=== PATIENT | female | born 1985 | race Two or more races ===

== ENCOUNTER 2017-02-08 12:07 | Inpatient (IN) | payer MEDICAID ==
[2017-02-08] MEDS ORDERED: Ondansetron 4 MG/2 ML SDV IVPUSH PRN (12:14)
[2017-02-08] MEDS ORDERED: Sodium Chloride 0.9% 10 ML Syringe FLUSH PRN (12:14)
[2017-02-08] MEDS ORDERED: Nalbuphine 20 MG/1 ML Amp IVPUSH PRN (12:14)
[2017-02-08] MEDS ORDERED: Oxytocin/Lactated Ringers 10 UNIT/1,000 ML BAG IV SCH (12:15)
--- NOTE | 2017-02-08 12:17 | PCM.LDHP ---
L&D History of Present Illness - General Date of Service: 02/08/17 Admit Problem/Dx: Patient Status Order with Admit Dx/Problem 02/08/17 12:15 Patient Status [ADT] Routine Admission Diagnosis/Problem Admission Diagnosis/Problem Normal in third trimester Source of Information: Patient History Limitations: Reports: No Limitations - History of Present Illness Introduction:: Patient is a 31 y/o woman at 40 4/7 wks who presents for IOL for dates/ GODMA1. Doing well. Getting good FM. No signs of labor other than some mild cramping. No other issues. - Related Data Allergies/Adverse Reactions: Allergies Allergy/AdvReac Type Severity Reaction Status Date / Time No Known Allergies Allergy Verified 02/08/17 14:10 Past Medical History - Past Health History Medical/Surgical History: Denies Medical/Surgical History [employer] History: Reports: : 1 Para: 0 LMP (Approximate): Social & Family History - Tobacco Use Smoking Status *Q: Never Smoker - Alcohol Use Alcohol Use History: No - Recreational Drug Use Recreational Drug Use: No H&P Review of Systems - Review of Systems: Review Of Systems: See Below General: Reports: No Symptoms Pulmonary: Reports: No Symptoms Cardiovascular: Reports: No Symptoms Gastrointestinal: Reports: No Symptoms Genitourinary: Reports: No Symptoms L&D Exam - Exam Exam: See Below - OB Specific Contraction Intensity: Irritability Movement: Active Heart Tones: Present Heart Tones per Min: 150 Heart Rate (FHR) Variability: Moderate (6-25 bmp) Presentation: Vertex - Martinez Score Martinez Score Cervix Position: Posterior Martinez Score Consistency: Soft Martinez Score Effacement: 0-30% Martinez Score Dilation: 1-2 cm Martinez Score Infant's Station: -2 Martinez Score Total: 4 - Exam General: Alert, Oriented, Cooperative Lungs: Clear to Auscultation, Normal Respiratory Effort Cardiovascular: Regular Rate, Regular Rhythm GI/Abdominal Exam: Soft, Non-Tender Genitourinary: Normal external exam Extremities: Normal Inspection Skin: Warm, Dry, Intact - Patient Data Result Diagrams: 02/08/17 12:50 - Problem List (1) 40 weeks gestation of SNOMED Code(s): 71175850 ICD Code: Z3A.40 - 40 WEEKS GESTATION OF Status: Acute Current Visit: Yes (2) Language barrier SNOMED Code(s): 481846490 ICD Code: Z78.9 - OTHER SPECIFIED HEALTH STATUS Status: Acute Current Visit: Yes (3) Gestational diabetes mellitus SNOMED Code(s): 87983236 ICD Code: O24.419 - GESTATIONAL DIABETES MELLITUS IN , UNSP CONTROL Status: Acute Current Visit: Yes Qualifiers: Gestational diabetes mellitus control: diet-controlled Trimester: third trimester Qualified Code(s): O24.410 - Gestational diabetes mellitus in , diet controlled Problem List Initiated/Reviewed/Updated: Yes Orders Last 24hrs: Active Orders 24 hr Category Date Time Status Patient Status [ADT] Routine ADT 02/08/17 12:15 Ordered Communication Order [RC] ASDIRECTED Care 02/08/17 12:15 Ordered Communication Order [RC] ASDIRECTED Care 02/08/17 12:15 Ordered Communication Order [RC] ASDIRECTED Care 02/08/17 12:15 Ordered Monitoring [RC] INTERMITTENT Care 02/08/17 12:15 Ordered Notify Provider [RC] ASDIRECTED Care 02/08/17 12:15 Ordered Notify Provider [RC] PRN Care 02/08/17 12:15 Ordered Peripheral IV Care [RC] . DIRECTED Care 02/08/17 12:16 Ordered Up ad Tashia [RC] ASDIRECTED Care 02/08/17 12:15 Ordered Vaginal Exam [RC] ASDIRECTED Care 02/08/17 12:15 Ordered Vital Signs [RC] ASDIRECTED Care 02/08/17 12:15 Ordered Regular Diet [DIET] Diet 02/08/17 Lunch Ordered CBC W/O DIFF,HEMOGRAM [HEME] Routine Lab 02/08/17 12:14 Ordered TYPE AND SCREEN [BBK] Routine Lab 02/08/17 12:14 Ordered Lactated Ringers [Ringers, Lactated] 1,000 ml Med 02/08/17 12:15 Ordered IV ASDIRECTED Misoprostol [Cytotec] Med 02/08/17 12:14 Ordered 25 mcg VAG Q4H PRN Nalbuphine [Nubain] Med 02/08/17 12:14 Ordered 10 mg IVPUSH Q2H PRN Ondansetron [Zofran] Med 02/08/17 12:14 Ordered 4 mg IVPUSH Q4H PRN Oxytocin/Lactated Ringers [Pitocin in LR 10 Units/1,000 Med 02/08/17 12:15 Ordered ML] 10 unit in 1,000 ml IV .CONTINUOUS Sodium Chloride 0.9% [Saline Flush] Med 02/08/17 12:14 Ordered 10 ml FLUSH ASDIRECTED PRN Electronic Heart Tones Internal [WOMSER] Per Unit Oth 02/08/17 12:15 Ordered Routine Peripheral IV Insertion Adult [OM.PC] Routine Oth 02/08/17 12:15 Ordered Resuscitation Status Routine Resus Stat 02/08/17 12:14 Ordered Assessment/Plan Comment:: 31 y/o woman at 40 4/7 wks who presents for IOL for dates/GODMA1 * CBC and T&S * GBS negative, no need for antibiotics * Cytotec for now, try to place jolly bulb later. Eventual pitocin/AROM as needed * Pain management per patient preference * Anticipate
[2017-02-08] MEDS ORDERED: Misoprostol 25 MCG (1/4 of 100 MCG) Tab ONE (12:29)
[2017-02-08] MEDS: Misoprostol 25 MCG (1/4 of 100 MCG) Tab VAG PRN ×2 (12:33→16:45)
[2017-02-08] MEDS ORDERED: fentaNYL 100 MCG/2 ML SDV EPIDUR PRN (16:20)
[2017-02-08] MEDS ORDERED: diphenhydrAMINE 50 MG/ML SDV IVPUSH PRN (16:20)
[2017-02-08] MEDS ORDERED: ePHEDrine 50 MG/ML SDV IVPUSH PRN (16:20)
--- NOTE | 2017-02-08 16:41 | PCM.PREANE ---
Preanesthetic Assessment - Anesthesia/Transfusion/Family Hx Anesthesia History: No Prior Anesthesia Family History of Anesthesia Reaction: No Transfusion History: No Prior Transfusion(s) Intubation History: Unknown - Review of Systems General: No Symptoms Pulmonary: No Symptoms Cardiovascular: No Symptoms Gastrointestinal: No Symptoms Neurological: No Symptoms Other: Reports: None - Physical Assessment O2 Sat by Pulse Oximetry: 98 Respiratory Rate: 18 Vital Signs: Last Vital Signs Temp 36.7 C 02/08/17 12:30 Pulse 81 02/08/17 12:30 Resp 18 02/08/17 12:30 BP 122/77 02/08/17 12:30 Pulse Ox 98 02/08/17 12:30 Weight: 83.007 kg ASA Class: 2 Mental Status: Alert & Oriented x3 Airway Class: Mallampati = 1 Dentition: Reports: Normal Dentition Thyro-Mental Finger Breadths: 3 Mouth Opening Finger Breadths: 3 ROM/Head Extension: Full Lungs: Clear to Auscultation, Normal Respiratory Effort Cardiovascular: Regular Rate, Regular Rhythm - Lab Values: Laboratory Last Values WBC 7.88 K/mm3 (3.98-10.04) 02/08/17 12:50 RBC 4.10 M/mm3 (3.98-5.22) 02/08/17 12:50 Hgb 12.6 gm/L (11.2-15.7) 02/08/17 12:50 Hct 37.2 % (34.1-44.9) 02/08/17 12:50 MCV 90.7 fl (79.4-94.8) 02/08/17 12:50 MCH 30.7 pg (25.6-32.2) 02/08/17 12:50 MCHC 33.9 g/dl (32.2-35.5) 02/08/17 12:50 RDW Std Deviation 45.1 fL (36.4-46.3) 02/08/17 12:50 Plt Count 229 K/mm3 (182-369) 02/08/17 12:50 MPV 11.0 fl (9.4-12.3) 02/08/17 12:50 Blood Type O POSITIVE 02/08/17 12:50 Gel Antibody Screen Negative 02/08/17 12:50 - Allergies Allergies/Adverse Reactions: Allergies Allergy/AdvReac Type Severity Reaction Status Date / Time No Known Allergies Allergy Verified 02/08/17 14:10 - Acknowledgements Anesthesia Type Planned: Epidural Pt an Appropriate Candidate for the Planned Anesthesia: Yes Alternatives and Risks of Anesthesia Discussed w Pt/Guardian: Yes Pt/Guardian Understands and Agrees with Anesthesia Plan: Yes PreAnesthesia Questionnaire ADMINISTRATIVE REPRESENTATIVE History: Reports: Endocrine/Metabolic History: Reports: Diabetes, Gestational - SUBSTANCE USE Smoking Status *Q: Never Smoker Recreational Drug Use History: No - CURRENT (IN HOUSE) MEDS Current Meds: Current Medications Diphenhydramine HCl (Benadryl) 25 mg IVPUSH Q6H PRN PRN Reason: Pruritis Ephedrine Sulfate (Ephedrine Sulfate) 5 mg IVPUSH ASDIRECTED PRN PRN Reason: Hypotension Fentanyl (Sublimaze) 100 mcg EPIDUR ONETIME PRN PRN Reason: Pain Fentanyl/Bupivacaine HCl (Fentanyl/Bupivacaine/Ns 2 Mcg-0.125% 100 Ml) 100 ml EPIDUR ASDIRECTED OLIVER Lactated Ringer's (Ringers, Lactated) 1,000 mls @ 40 mls/hr IV ASDIRECTED [place] Oxytocin/Lactated Ringer's (Pitocin In Lr 10 Units/1,000 Ml) 10 unit in 1,000 mls @ 500 mls/hr IV .CONTINUOUS [place] Misoprostol (Cytotec) 25 mcg VAG Q4H PRN PRN Reason: cervical ripening Last Admin: 02/08/17 12:33 Dose: 25 mcg Nalbuphine HCl (Nubain) 10 mg IVPUSH Q2H PRN PRN Reason: Pain (moderate 4-6) Ondansetron HCl (Zofran) 4 mg IVPUSH Q4H PRN PRN Reason: Nausea/Vomiting Sodium Chloride (Saline Flush) 10 ml FLUSH ASDIRECTED PRN PRN Reason: Keep Vein Open Discontinued Medications Misoprostol (Cytotec) Confirm Administered Dose 25 mcg .ROUTE .STK-MED ONE Stop: 02/08/17 12:30 Last Admin: 02/08/17 14:59 Dose: Not Given
[2017-02-08] MEDS: Lactated Ringers 1,000 ML IV SCH ×2 (18:11→20:51)
--- NOTE | 2017-02-08 20:21 | PCM.PNLD ---
Labor Progress Note - VS & Meds Vital Signs: Last Vital Signs Temp 36.7 C 02/08/17 12:30 Pulse 81 02/08/17 12:30 Resp 18 02/08/17 16:41 BP 122/77 02/08/17 12:30 Pulse Ox 98 02/08/17 16:41 Active Medications: Current Medications Diphenhydramine HCl (Benadryl) 25 mg IVPUSH Q6H PRN PRN Reason: Pruritis Ephedrine Sulfate (Ephedrine Sulfate) 5 mg IVPUSH ASDIRECTED PRN PRN Reason: Hypotension Fentanyl (Sublimaze) 100 mcg EPIDUR ONETIME PRN PRN Reason: Pain Fentanyl/Bupivacaine HCl (Fentanyl/Bupivacaine/Ns 2 Mcg-0.125% 100 Ml) 100 ml EPIDUR ASDIRECTED [place] Lactated Ringer's (Ringers, Lactated) 1,000 mls @ 40 mls/hr IV ASDIRECTED OLIVER Last Admin: 02/08/17 18:11 Dose: 250 mls/hr Oxytocin/Lactated Ringer's (Pitocin In Lr 10 Units/1,000 Ml) 10 unit in 1,000 mls @ 500 mls/hr IV .CONTINUOUS [facility] Misoprostol (Cytotec) 25 mcg VAG Q4H PRN PRN Reason: cervical ripening Last Admin: 02/08/17 16:45 Dose: 25 mcg Nalbuphine HCl (Nubain) 10 mg IVPUSH Q2H PRN PRN Reason: Pain (moderate 4-6) Ondansetron HCl (Zofran) 4 mg IVPUSH Q4H PRN PRN Reason: Nausea/Vomiting Sodium Chloride (Saline Flush) 10 ml FLUSH ASDIRECTED PRN PRN Reason: Keep Vein Open Discontinued Medications Misoprostol (Cytotec) Confirm Administered Dose 25 mcg .ROUTE .STK-MED ONE Stop: 02/08/17 12:30 Last Admin: 02/08/17 14:59 Dose: Not Given - Uterine Contractions Uterine Monitoring Mode: External [place] Contraction Intensity: Mild to Moderate Uterine Resting Tone: Soft - Monitoring Monitor Mode: External Ultrasound Heart Rate (FHR) Baseline: 150 Heart Rate (FHR) Variability: Moderate (6-25 bmp) Accelerations: Present, 15x15 Decelerations: None Strip Review: Category I - Vaginal Exam Dilation (cm): 1 Effacement (Percent): 25 Station: -2 Cervical Position: Posterior - Labor Progress (Free Text) Labor Progress: Doing well. S/p 1st cytotec dose. Next due shortly. Eid bulb placed to continue induction process.
--- NOTE | 2017-02-08 20:24 | PCM.PNLD ---
Labor Progress Note - VS & Meds Vital Signs: Last Vital Signs Temp 36.7 C 02/08/17 12:30 Pulse 81 02/08/17 12:30 Resp 18 02/08/17 16:41 BP 122/77 02/08/17 12:30 Pulse Ox 98 02/08/17 16:41 Active Medications: Current Medications Diphenhydramine HCl (Benadryl) 25 mg IVPUSH Q6H PRN PRN Reason: Pruritis Ephedrine Sulfate (Ephedrine Sulfate) 5 mg IVPUSH ASDIRECTED PRN PRN Reason: Hypotension Fentanyl (Sublimaze) 100 mcg EPIDUR ONETIME PRN PRN Reason: Pain Fentanyl/Bupivacaine HCl (Fentanyl/Bupivacaine/Ns 2 Mcg-0.125% 100 Ml) 100 ml EPIDUR ASDIRECTED OLIVER Lactated Ringer's (Ringers, Lactated) 1,000 mls @ 40 mls/hr IV ASDIRECTED OLIVER Last Admin: 02/08/17 18:11 Dose: 250 mls/hr Oxytocin/Lactated Ringer's (Pitocin In Lr 10 Units/1,000 Ml) 10 unit in 1,000 mls @ 500 mls/hr IV .CONTINUOUS [facility] Misoprostol (Cytotec) 25 mcg VAG Q4H PRN PRN Reason: cervical ripening Last Admin: 02/08/17 16:45 Dose: 25 mcg Nalbuphine HCl (Nubain) 10 mg IVPUSH Q2H PRN PRN Reason: Pain (moderate 4-6) Ondansetron HCl (Zofran) 4 mg IVPUSH Q4H PRN PRN Reason: Nausea/Vomiting Sodium Chloride (Saline Flush) 10 ml FLUSH ASDIRECTED PRN PRN Reason: Keep Vein Open Discontinued Medications Misoprostol (Cytotec) Confirm Administered Dose 25 mcg .ROUTE .STK-MED ONE Stop: 02/08/17 12:30 Last Admin: 02/08/17 14:59 Dose: Not Given - Uterine Contractions Uterine Monitoring Mode: External [place] Contraction Intensity: Moderate Uterine Resting Tone: Soft - Monitoring Monitor Mode: External Ultrasound Heart Rate (FHR) Baseline: 150 Heart Rate (FHR) Variability: Moderate (6-25 bmp) Accelerations: Present, 15x15 Decelerations: None Strip Review: Category I - Vaginal Exam Dilation (cm): 2 Effacement (Percent): 60 Station: -2 Cervical Position: Midposition - Labor Progress (Free Text) Labor Progress: Patient doing well. Rates contractions as a 5/10. Eid bulb felt to be pushing through the cervix. Deflated 10 cc and removed. Cervix is 2 and 60%. Patient has been silverio about q2 or so. Discussed with nursing and will plan to switch to pitocin in 30 minutes (4 hours after last cytotec placed). Patient agrees.
[2017-02-09] MEDS: Lactated Ringers 1,000 ML IV SCH ×4 (01:18→07:11)
[2017-02-09] MEDS: Bupivacaine/fentaNYL/NS 100 ML Bag EPIDUR SCH ×2 (02:21→10:30)
--- NOTE | 2017-02-09 03:39 | PCM.PNLD ---
Labor Progress Note - VS & Meds Vital Signs: Last Vital Signs Temp 36.7 C 02/08/17 12:30 Pulse 81 02/08/17 12:30 Resp 18 02/08/17 16:41 BP 122/77 02/08/17 12:30 Pulse Ox 98 02/08/17 16:41 Active Medications: Current Medications Diphenhydramine HCl (Benadryl) 25 mg IVPUSH Q6H PRN PRN Reason: Pruritis Ephedrine Sulfate (Ephedrine Sulfate) 5 mg IVPUSH ASDIRECTED PRN PRN Reason: Hypotension Fentanyl (Sublimaze) 100 mcg EPIDUR ONETIME PRN PRN Reason: Pain Last Admin: 02/09/17 02:21 Dose: 100 mcg Fentanyl/Bupivacaine HCl (Fentanyl/Bupivacaine/Ns 2 Mcg-0.125% 100 Ml) 100 ml EPIDUR ASDIRECTED OLIVER Last Admin: 02/09/17 02:21 Dose: 100 ml Lactated Ringer's (Ringers, Lactated) 1,000 mls @ 40 mls/hr IV ASDIRECTED OLIVER Last Admin: 02/09/17 02:41 Dose: 999 mls/hr Oxytocin/Lactated Ringer's (Pitocin In Lr 10 Units/1,000 Ml) 10 unit in 1,000 mls @ 500 mls/hr IV .CONTINUOUS [place] Oxytocin 10 unit/ Lactated (Ringer's) 1,001 mls @ 12.01 mls/hr IV TITRATE OLIVER; 2 MUNITS/MIN PRN Reason: Protocol Last Titration: 02/09/17 01:47 Dose: 0 munits/min, 0 mls/hr Misoprostol (Cytotec) 25 mcg VAG Q4H PRN PRN Reason: cervical ripening Last Admin: 02/08/17 16:45 Dose: 25 mcg Nalbuphine HCl (Nubain) 10 mg IVPUSH Q2H PRN PRN Reason: Pain (moderate 4-6) Ondansetron HCl (Zofran) 4 mg IVPUSH Q4H PRN PRN Reason: Nausea/Vomiting Last Admin: 02/09/17 01:15 Dose: 4 mg Sodium Chloride (Saline Flush) 10 ml FLUSH ASDIRECTED PRN PRN Reason: Keep Vein Open Discontinued Medications Misoprostol (Cytotec) Confirm Administered Dose 25 mcg .ROUTE .STK-MED ONE Stop: 02/08/17 12:30 Last Admin: 02/08/17 14:59 Dose: Not Given - Uterine Contractions Uterine Monitoring Mode: External [place] Contraction Intensity: Moderate to Strong Uterine Resting Tone: Soft - Monitoring Monitor Mode: External Ultrasound Heart Rate (FHR) Baseline: 140 Heart Rate (FHR) Variability: Moderate (6-25 bmp) Accelerations: Present, 15x15 Decelerations: Early, Late (right after epidural), Variable Strip Review: Category II - Vaginal Exam Dilation (cm): 2 - BBOW Effacement (Percent): 80 Station: -2 Cervical Position: Midposition - Labor Progress (Free Text) Labor Progress: Patient doing well currently. Pitocin got to a high of about 8 slightly before midnight. Patient then very uncomfortable. Decreased/off by nursing around 0145 this AM. Completed her epidural about 1 hour ago. Had a few late decelerations right after epidural resolved with nursing interventions. AROM just performed with release of meconium stained fluid.
--- NOTE | 2017-02-09 04:28 | PCM.SN ---
- Free Text/Narrative Note: After AROM patient did have a period of larger variable decelerations and also deeper what appear to be early decelerations. Position changes done, but after no resolution decision made to place IUPC and start amnioinfusion. Patient and family aware of reasons/indications of amnioinfusion and they agree. No other questions at this time. Eva Vincent MD
--- NOTE | 2017-02-09 07:16 | PCM.PNLD ---
Labor Progress Note - VS & Meds Vital Signs: Last Vital Signs Temp 36.7 C 02/08/17 12:30 Pulse 81 02/08/17 12:30 Resp 18 02/08/17 16:41 BP 122/77 02/08/17 12:30 Pulse Ox 98 02/08/17 16:41 Active Medications: Current Medications Diphenhydramine HCl (Benadryl) 25 mg IVPUSH Q6H PRN PRN Reason: Pruritis Ephedrine Sulfate (Ephedrine Sulfate) 5 mg IVPUSH ASDIRECTED PRN PRN Reason: Hypotension Fentanyl (Sublimaze) 100 mcg EPIDUR ONETIME PRN PRN Reason: Pain Last Admin: 02/09/17 02:21 Dose: 100 mcg Fentanyl/Bupivacaine HCl (Fentanyl/Bupivacaine/Ns 2 Mcg-0.125% 100 Ml) 100 ml EPIDUR ASDIRECTED OLIVER Last Admin: 02/09/17 02:21 Dose: 100 ml Lactated Ringer's (Ringers, Lactated) 1,000 mls @ 40 mls/hr IV ASDIRECTED OLIVER Last Admin: 02/09/17 07:11 Dose: 125 mls/hr Oxytocin/Lactated Ringer's (Pitocin In Lr 10 Units/1,000 Ml) 10 unit in 1,000 mls @ 500 mls/hr IV .CONTINUOUS [place] Oxytocin 10 unit/ Lactated (Ringer's) 1,001 mls @ 12.01 mls/hr IV TITRATE OLIVER; 2 MUNITS/MIN PRN Reason: Protocol Last Titration: 02/09/17 01:47 Dose: 0 munits/min, 0 mls/hr Misoprostol (Cytotec) 25 mcg VAG Q4H PRN PRN Reason: cervical ripening Last Admin: 02/08/17 16:45 Dose: 25 mcg Nalbuphine HCl (Nubain) 10 mg IVPUSH Q2H PRN PRN Reason: Pain (moderate 4-6) Ondansetron HCl (Zofran) 4 mg IVPUSH Q4H PRN PRN Reason: Nausea/Vomiting Last Admin: 02/09/17 01:15 Dose: 4 mg Sodium Chloride (Saline Flush) 10 ml FLUSH ASDIRECTED PRN PRN Reason: Keep Vein Open Discontinued Medications Misoprostol (Cytotec) Confirm Administered Dose 25 mcg .ROUTE .STK-MED ONE Stop: 02/08/17 12:30 Last Admin: 02/08/17 14:59 Dose: Not Given - Uterine Contractions Uterine Monitoring Mode: External [place], IUPC Contraction Intensity: Moderate to Strong Uterine Resting Tone: Soft - Monitoring Monitor Mode: External Ultrasound Heart Rate (FHR) Baseline: 135 Heart Rate (FHR) Variability: Moderate (6-25 bmp) Accelerations: Present, 15x15 Decelerations: Early Strip Review: Category I - Vaginal Exam Dilation (cm): 5 Effacement (Percent): 90 Station: 1 Cervical Position: Anterior - Labor Progress (Free Text) Labor Progress: Patient doing well overall. Feeling a lot more pressure. SVE with significant change in station. Now 5 / 90% / 0-+1. status has been appropriate with amnioinfusion. Baby with moderate variability, some early decelerations, but no further repetitive or deep variables. Continue current management.
--- NOTE | 2017-02-09 08:43 | PCM.PNLD ---
Labor Progress Note - VS & Meds Vital Signs: Last Vital Signs Temp 36.7 C 02/08/17 12:30 Pulse 81 02/08/17 12:30 Resp 18 02/08/17 16:41 BP 122/77 02/08/17 12:30 Pulse Ox 98 02/08/17 16:41 Active Medications: Current Medications Diphenhydramine HCl (Benadryl) 25 mg IVPUSH Q6H PRN PRN Reason: Pruritis Ephedrine Sulfate (Ephedrine Sulfate) 5 mg IVPUSH ASDIRECTED PRN PRN Reason: Hypotension Fentanyl (Sublimaze) 100 mcg EPIDUR ONETIME PRN PRN Reason: Pain Last Admin: 02/09/17 02:21 Dose: 100 mcg Fentanyl/Bupivacaine HCl (Fentanyl/Bupivacaine/Ns 2 Mcg-0.125% 100 Ml) 100 ml EPIDUR ASDIRECTED [place] Last Admin: 02/09/17 02:21 Dose: 100 ml Lactated Ringer's (Ringers, Lactated) 1,000 mls @ 40 mls/hr IV ASDIRECTED OLIVER Last Admin: 02/09/17 07:11 Dose: 125 mls/hr Oxytocin/Lactated Ringer's (Pitocin In Lr 10 Units/1,000 Ml) 10 unit in 1,000 mls @ 500 mls/hr IV .CONTINUOUS [place] Oxytocin 10 unit/ Lactated (Ringer's) 1,001 mls @ 12.01 mls/hr IV TITRATE [place]IVER; 2 MUNITS/MIN PRN Reason: Protocol Last Titration: 02/09/17 01:47 Dose: 0 munits/min, 0 mls/hr Misoprostol (Cytotec) 25 mcg VAG Q4H PRN PRN Reason: cervical ripening Last Admin: 02/08/17 16:45 Dose: 25 mcg Nalbuphine HCl (Nubain) 10 mg IVPUSH Q2H PRN PRN Reason: Pain (moderate 4-6) Ondansetron HCl (Zofran) 4 mg IVPUSH Q4H PRN PRN Reason: Nausea/Vomiting Last Admin: 02/09/17 01:15 Dose: 4 mg Sodium Chloride (Saline Flush) 10 ml FLUSH ASDIRECTED PRN PRN Reason: Keep Vein Open Discontinued Medications Misoprostol (Cytotec) Confirm Administered Dose 25 mcg .ROUTE .STK-MED ONE Stop: 02/08/17 12:30 Last Admin: 02/08/17 14:59 Dose: Not Given - Uterine Contractions Uterine Monitoring Mode: IUPC Contraction Intensity: Moderate to Strong Uterine Resting Tone: Soft - Monitoring Monitor Mode: External Ultrasound Heart Rate (FHR) Baseline: 140 Heart Rate (FHR) Variability: Moderate (6-25 bmp) Accelerations: Present, 15x15 Decelerations: Early, Variable Strip Review: Category II - Vaginal Exam Dilation (cm): 7 Effacement (Percent): 90 Station: 1 Cervical Position: Anterior - Labor Progress (Free Text) Labor Progress: Patient doing well. Feeling more pressure. FHR with moderate variability. Still some variables and early decelerations. Good scalp stimulation with check. Now 7 cm. Continue to assess closely and reassess as necessary. Anticipate
[2017-02-09] MEDS ORDERED: Misoprostol 200 MCG Tab ONE (13:40)
[2017-02-09] MEDS ORDERED: Misoprostol 100 MCG Tab PO ONE ×2 (13:45→14:35)
--- NOTE | 2017-02-09 14:03 | PCM.DEL ---
L & D Note - General Info Date of Service: 02/09/17 - Delivery Note Labor: Induced by ARM Cervical Ripening Method: Balloon Device, Misoprostil Delivery Outcome: Livebirth Infant Delivery Method: Spontaneous Vaginal Delivery-Single Delivery Mode: Vacuum Extraction Presentation: Left Occiput Anterior ([place]) Nuchal Cord: None Anesthesia Type: Epidural Amniotic Fluid Description: Meconium Stained Episiotomy Type: None Laceration: 2nd Degree, Perineal Suture type: Vicryl Suture size: 2-0 Placenta: Intact, Spontaneous Cord: 3 Vessels Estimated Blood Loss: 400 [place]: Bulb Syringe, Stimulated, Warmed, [place] Used, Warmer Used Delivery Comments (Free Text/Narrative):: Patient found to be complete and began pushing. After approximately 2.5 hour of pushing scalp visible on perineum, but patient with significant exhaustion. Reviewed risks/benefits of vacuum extraction including scalp laceration, more significant maternal laceration, and hematoma. Patient voiced understanding and agreed to proceed. SVE showed baby to be in TE[place]ORO presentation. Kiwi vacuum applied. Over 2 contractions and 3 pulls delivery of head occurred. Maximum pressure of 550 mm Hg. No pop offs. Vacuum removed. With gentle downward tractions the shoulders and body delivered. Cord clamped and cut. Baby handed to awaiting supervisor [place]. Cord segment obtained for ABG/VBG. This was 7.29/7.31. Placenta allowed time to separate and expelled. Poor uterine tone noted adn patient given 600 mcg of buccal cytotec with good response. Inspection of the perineum showed a 2nd degree laceration which was repaired with a 2-0 vicryl in the typical fashion Vacuum Extractor Progress Note - Alternative Labor Strategies Considered Alternative Labor Strategies Considered:: Reports: Yes Strategies Considered:: Reports: Contraction Intensity Adequate Indications Considered:: Reports: Yes Indications:: Reports: Shortening of 2nd Stage for Maternal Benefit - Patient Prepared Patient Prepared:: Reports: Yes Informed Consent:: Reports: Verbal (Obtained with aid of her acting as technical support director ) Risks: Reports: Yes Risks Include:: Reports: Laceration, Shoulder Dystocia, Maternal Injury, Other Anesthesia/Analgesia Adequate:: Reports: Yes - Probability of Success High Probability of Success:: Reports: Yes Weight Estimated:: Reports: AGA Patient Diabetic:: Reports: Yes ([id number]) Pelvis Adequate:: Reports: Yes Position:: [place] Asynclitic:: Reports: No Station:: Outlet application - Application Time Maximum Application Time & Number of Pop-Offs Predetermined:: Reports: Yes Maximum Pressure Maintained in [place] (cm Hg):: 550 Total Application Time (min): *max=20min: 3 Number of Times Cup Disengaged:: 0 Type of Vacuum Used:: Reports: Cup: Mushroom type Vacuum Extraction: Successful - Exit Strategy Exit strategy available:: Reports: Yes and resuscitation teams readily available:: Reports: Yes - Patient Data Vitals - Most Recent: Last Vital Signs Temp 36.7 C 02/08/17 12:30 Pulse 81 02/08/17 12:30 Resp 18 02/08/17 16:41 BP 122/77 02/08/17 12:30 Pulse Ox 98 02/08/17 16:41 Weight - Most Recent: 83.007 kg I&O - Last 24 Hours: Intake & Output 02/08/17 02/09/17 02/09/17 22:59 06:59 14:59 Intake Total 120 Balance 120 Lab Results Last 24 Hours: Laboratory Results - last 24 hr 02/08/17 02/08/17 02/08/17 Range/Units 12:50 18:16 20:50 Cord ABG pH (7.22-7.32) Cord ABG pCO2 (42-58) Cord ABG pO2 (12-24) Cord ABG HCO3 (24-26) Cord ABG Base Excess (-5.5-0.1) Cord VBG pH (7.28-7.40) Cord VBG pCO2 (32.8-38.6) Cord VBG pO2 (28-32) Cord VBG HCO3 (19-24) Cord VBG Base Excess (-4.4-0.4) POC Glucose 99 95 (70-105) mg/dL Blood Type O POSITIVE Gel Antibody Screen Negative 02/09/17 02/09/17 02/09/17 Range/Units 00:10 04:15 07:54 Cord ABG pH (7.22-7.32) Cord ABG pCO2 (42-58) Cord ABG pO2 (12-24) Cord ABG HCO3 (24-26) Cord ABG Base Excess (-5.5-0.1) Cord VBG pH (7.28-7.40) Cord VBG pCO2 (32.8-38.6) Cord VBG pO2 (28-32) Cord VBG HCO3 (19-24) Cord VBG Base Excess (-4.4-0.4) POC Glucose 93 105 85 (70-105) mg/dL Blood Type Gel Antibody Screen 02/09/17 02/09/17 Range/Units 13:45 13:48 Cord ABG pH 7.29 (7.22-7.32) Cord ABG pCO2 42.1 (42-58) Cord ABG pO2 27 H (12-24) Cord ABG HCO3 19.6 L (24-26) Cord ABG Base Excess -6.5 L (-5.5-0.1) Cord VBG pH 7.31 (7.28-7.40) Cord VBG pCO2 43.7 H (32.8-38.6) Cord VBG pO2 18 L (28-32) Cord VBG HCO3 21.2 (19-24) Cord VBG Base Excess -4.6 L (-4.4-0.4) POC Glucose (70-105) mg/dL Blood Type Gel Antibody Screen Med Orders - Current: Current Medications Diphenhydramine HCl (Benadryl) 25 mg IVPUSH Q6H PRN PRN Reason: Pruritis Ephedrine Sulfate (Ephedrine Sulfate) 5 mg IVPUSH ASDIRECTED PRN PRN Reason: Hypotension Fentanyl (Sublimaze) 100 mcg EPIDUR ONETIME PRN PRN Reason: Pain Last Admin: 02/09/17 02:21 Dose: 100 mcg Fentanyl/Bupivacaine HCl (Fentanyl/Bupivacaine/Ns 2 Mcg-0.125% 100 Ml) 100 ml EPIDUR ASDIRECTED [place] Last Admin: 02/09/17 10:30 Dose: 100 ml Lactated Ringer's (Ringers, Lactated) 1,000 mls @ 40 mls/hr IV ASDIRECTED [place] Last Admin: 02/09/17 07:11 Dose: 125 mls/hr Oxytocin/Lactated Ringer's (Pitocin In Lr 10 Units/1,000 Ml) 10 unit in 1,000 mls @ 500 mls/hr IV .CONTINUOUS [place]IVER Oxytocin 10 unit/ Lactated (Ringer's) 1,001 mls @ 12.01 mls/hr IV TITRATE [place]; 2 MUNITS/MIN PRN Reason: Protocol Last Titration: 02/09/17 01:47 Dose: 0 munits/min, 0 mls/hr Misoprostol (Cytotec) 25 mcg VAG Q4H PRN PRN Reason: cervical ripening Last Admin: 02/08/17 16:45 Dose: 25 mcg Nalbuphine HCl (Nubain) 10 mg IVPUSH Q2H PRN PRN Reason: Pain (moderate 4-6) Ondansetron HCl (Zofran) 4 mg IVPUSH Q4H PRN PRN Reason: Nausea/Vomiting Last Admin: 02/09/17 01:15 Dose: 4 mg Sodium Chloride (Saline Flush) 10 ml FLUSH ASDIRECTED PRN PRN Reason: Keep Vein Open Discontinued Medications Misoprostol (Cytotec) Confirm Administered Dose 25 mcg .ROUTE .STK-MED ONE Stop: 02/08/17 12:30 Last Admin: 02/08/17 14:59 Dose: Not Given Misoprostol (Cytotec) Confirm Administered Dose 200 mcg .ROUTE .STK-MED ONE Stop: 02/09/17 13:41 - Problem List & Annotations (1) 40 weeks gestation of SNOMED Code(s): 63863935 Code(s): Z3A.40 - 40 WEEKS GESTATION OF Status: Acute Current Visit: Yes (2) Language barrier SNOMED Code(s): 012998332 Code(s): Z78.9 - OTHER SPECIFIED HEALTH STATUS Status: Acute Current Visit: Yes (3) Gestational diabetes mellitus SNOMED Code(s): 79043685 Code(s): O24.419 - GESTATIONAL DIABETES MELLITUS IN , UNSP CONTROL Status: Acute Current Visit: Yes Qualifiers: Gestational diabetes mellitus control: diet-controlled Trimester: third trimester Qualified Code(s): O24.410 - Gestational diabetes mellitus in , diet controlled (4) Meconium stained amniotic fluid, delivered, current hospitalization SNOMED Code(s): 622607128 Code(s): O77.0 - LABOR AND DELIVERY COMPLICATED BY MECONIUM IN AMNIOTIC FLUID Status: Acute Current Visit: Yes (5) Status post vacuum-assisted vaginal delivery SNOMED Code(s): 677179542 Code(s): Z87.42 - PERSONAL HISTORY OF OTH DISEASES OF THE FEMALE GENITAL TRACT Status: Acute Current Visit: Yes - Problem List Review Problem List Initiated/Reviewed/Updated: Yes - My Orders Last 24 Hours: My Active Orders 02/08/17 20:24 Blood Glucose Check, Bedside [RC] Q2HR 02/08/17 20:45 Oxytocin [Pitocin] 10 unit Lactated Ringers [Ringers, Lactated] 1,000 ml IV TITRATE - Assessment Assessment:: 31 y/o G1 now P1001 PPD#0 from [facility] at 40 5/7 wks - Plan Plan:: [facility] * Routine cares * Encourage breast feeding * Discharge home in 2 days
[2017-02-09] MEDS ORDERED: Witch Hazel Medicated Pads 100/Jar TOP PRN (14:35)
[2017-02-09] MEDS ORDERED: Docusate Sodium 100 MG Cap PO PRN (14:35)
[2017-02-09] MEDS ORDERED: Lanolin 100% Cream 7 GM Tube TOP PRN (14:35)
[2017-02-09] MEDS ORDERED: Benzocaine/Menthol 20%-0.5% Spray 56 GM Canister TOP PRN (14:35)
[2017-02-09] MEDS ORDERED: Ibuprofen 600 MG Tab PO PRN (14:35)
[2017-02-09] MEDS ORDERED: Acetaminophen 325 MG Tab PO PRN (14:35)
[2017-02-09] MEDS ORDERED: Bupivacaine 0.25% 10 ML SDV ONE (22:22)
--- NOTE | 2017-02-10 08:48 | PCM.PNPP ---
- General Info Date of Service: 02/10/17 Functional Status: Reports: Pain Controlled - Review of Systems General: Reports: No Symptoms HEENT: Reports: No Symptoms Pulmonary: Reports: No Symptoms Cardiovascular: Reports: No Symptoms Gastrointestinal: Reports: No Symptoms Genitourinary: Reports: No Symptoms Musculoskeletal: Reports: No Symptoms Skin: Reports: No Symptoms Neurological: Reports: No Symptoms Psychiatric: Reports: No Symptoms - General Info Date of Service: 02/10/17 - Patient Data Vital Signs - Most Recent: Last Vital Signs Temp 36.4 C 02/10/17 03:52 Pulse 90 02/10/17 03:52 Resp 18 02/10/17 03:52 BP 100/54 L 02/10/17 03:52 Pulse Ox 94 L 02/10/17 03:52 Weight - Most Recent: 83.007 kg I&O - Last 24 Hours: Intake & Output 02/09/17 02/10/17 02/10/17 22:59 06:59 14:59 Intake Total 1120 Balance 1120 Lab Results - Last 24 Hours: Laboratory Results - last 24 hr 02/09/17 02/09/17 Range/Units 13:45 13:48 Cord ABG pH 7.29 (7.22-7.32) Cord ABG pCO2 42.1 (42-58) Cord ABG pO2 27 H (12-24) Cord ABG HCO3 19.6 L (24-26) Cord ABG Base Excess -6.5 L (-5.5-0.1) Cord VBG pH 7.31 (7.28-7.40) Cord VBG pCO2 43.7 H (32.8-38.6) Cord VBG pO2 18 L (28-32) Cord VBG HCO3 21.2 (19-24) Cord VBG Base Excess -4.6 L (-4.4-0.4) Med Orders - Current: Current Medications Acetaminophen (Tylenol) 650 mg PO Q4H PRN PRN Reason: mild pain or fever Benzocaine/Menthol (Dermoplast Pain Relief [place]) 0 gm TOP ASDIRECTED PRN PRN Reason: Perineal Comfort Measure Last Admin: 02/09/17 17:02 Dose: 1 can Docusate Sodium (Colace) 100 mg PO BID PRN PRN Reason: Constipation Emollient Ointment (Lansinoh Hpa) 0 gm TOP ASDIRECTED PRN PRN Reason: Sore Nipples Ibuprofen (Motrin) 600 mg PO Q6H PRN PRN Reason: Mild pain or fever Witch Marisol (Tucks) 1 pad TOP ASDIRECTED PRN PRN Reason: Hemorrhoid pain Last Admin: 02/09/17 17:02 Dose: 1 box Discontinued Medications Bupivacaine HCl (Sensorcaine-Mpf 0.25%) 10 ml .ROUTE .STK-MED ONE Stop: 02/09/17 22:23 Diphenhydramine HCl (Benadryl) 25 mg IVPUSH Q6H PRN PRN Reason: Pruritis Ephedrine Sulfate (Ephedrine Sulfate) 5 mg IVPUSH ASDIRECTED PRN PRN Reason: Hypotension Fentanyl (Sublimaze) 100 mcg EPIDUR ONETIME PRN PRN Reason: Pain Last Admin: 02/09/17 02:21 Dose: 100 mcg Fentanyl/Bupivacaine HCl (Fentanyl/Bupivacaine/Ns 2 Mcg-0.125% 100 Ml) 100 ml EPIDUR ASDIRECTED [place] Last Admin: 02/09/17 10:30 Dose: 100 ml Lactated Ringer's (Ringers, Lactated) 1,000 mls @ 40 mls/hr IV ASDIRECTED [place] Last Admin: 02/09/17 07:11 Dose: 125 mls/hr Oxytocin/Lactated Ringer's (Pitocin In Lr 10 Units/1,000 Ml) 10 unit in 1,000 mls @ 500 mls/hr IV .CONTINUOUS [place] Oxytocin 10 unit/ Lactated (Ringer's) 1,001 mls @ 12.01 mls/hr IV TITRATE [place]; 2 MUNITS/MIN PRN Reason: Protocol Last Titration: 02/09/17 14:30 Dose: 150 mls/hr Misoprostol (Cytotec) 25 mcg VAG Q4H PRN PRN Reason: cervical ripening Last Admin: 02/08/17 16:45 Dose: 25 mcg Misoprostol (Cytotec) Confirm Administered Dose 25 mcg .ROUTE .STK-MED ONE Stop: 02/08/17 12:30 Last Admin: 02/08/17 14:59 Dose: Not Given Misoprostol (Cytotec) Confirm Administered Dose 200 mcg .ROUTE .STK-MED ONE Stop: 02/09/17 13:41 Last Admin: 02/09/17 17:40 Dose: Not Given Misoprostol (Cytotec) 600 mcg PO ONETIME ONE Stop: 02/09/17 13:46 Last Admin: 02/09/17 01:00 Dose: 600 mcg Misoprostol (Cytotec) 600 mcg PO ONETIME ONE Stop: 02/09/17 14:36 Last Admin: 02/09/17 17:01 Dose: Not Given Nalbuphine HCl (Nubain) 10 mg IVPUSH Q2H PRN PRN Reason: Pain (moderate 4-6) Ondansetron HCl (Zofran) 4 mg IVPUSH Q4H PRN PRN Reason: Nausea/Vomiting Last Admin: 02/09/17 01:15 Dose: 4 mg Sodium Chloride (Saline Flush) 10 ml FLUSH ASDIRECTED PRN PRN Reason: Keep Vein Open - Interaction Infant Disposition, : [place] to Nursery Support Person: Significant Other, Other (see below) - Recovery Exam Fundal Tone: Firm Fundal Level: 1 Fingerbreadths Below Umbilicus Fundal Placement: Midline Lochia Amount: Small Lochia Color: Rubra/Red Perineum Description: Intact, Minimal Bruising/Swelling Episiotomy/Laceration: Approximated Bladder Status: Voiding Urinary Elimination: Voided - Exam General: Alert, Oriented HEENT: Pupils Equal Neck: Supple Lungs: Clear to Auscultation, Normal Respiratory Effort Cardiovascular: Regular Rate, Regular Rhythm GI/Abdominal Exam: Normal Bowel Sounds, Soft, Non-Tender, No Organomegaly, No Distention, No Abnormal Bruit, No Mass, Pelvis Stable Extremities: Normal Inspection, Normal Range of Motion, Non-Tender, No Pedal Edema, Normal Capillary Refill Wound/Incisions: Healing Well Neurological: No New Focal Deficit Psy/Mental Status: Alert, Normal Affect, Normal Mood - Problem List Review Problem List Initiated/Reviewed/Updated: Yes - Assessment Assessment:: 31 y/o G1 now P1001 PPD#1 from [facility] at 40 5/7 wks - Plan Plan:: [facility] * Routine cares * Encourage breast feeding * Discharge home in 1 days
--- NOTE | 2017-02-10 09:50 | PCM48HPAN ---
Post Anesthesia Note - EVALUATION WITHIN 48HRS OF ANESTHETIC Vital Signs in Normal Range: Yes Patient Participated in Evaluation: Yes Respiratory Function Stable: Yes Airway Patent: Yes Cardiovascular Function Stable: Yes Hydration Status Stable: Yes Pain Control Satisfactory: Yes Nausea and Vomiting Control Satisfactory: Yes Mental Status Recovered: Yes
--- NOTE | 2017-02-10 11:11 | PCM.DCSUM1 ---
Discharge Summary - Hospital Course Brief History: Admitted for induction of labor with GDM. Progressed to complete with occasional tracing issues but overall reassuring. [facility]. Desired discharge home later in day of PPD1. - Discharge Data Discharge Date: 02/10/17 Discharge Disposition: Home, Self-Care 01 Condition: Good - Patient Instructions Diet: Usual Diet as Tolerated Activity: No Strenuous Activities Activity, Other: pelvic rest Driving: Do Not Drive Showering/Bathing: May Shower Wound/Incision Care: Keep Operative Site/Wound Site Clean and Dry Notify Provider of: Fever, Increased Pain, Swelling and Redness, Drainage, Nausea and/or Vomiting - Discharge Plan Patient Handouts: Home Care Instructions for Mom, Vaginal Delivery, Care After , Depression and Baby Blues, Gestational Diabetes Mellitus Referrals: vEa Vincent MD [Primary Care Provider] - (6 weeks) - Discharge Summary/Plan Comment DC Time >30 min.: No - General Info Date of Service: 02/10/17 Functional Status: Reports: Pain Controlled - Review of Systems General: Reports: No Symptoms HEENT: Reports: No Symptoms Pulmonary: Reports: No Symptoms Cardiovascular: Reports: No Symptoms Gastrointestinal: Reports: No Symptoms Genitourinary: Reports: No Symptoms Musculoskeletal: Reports: No Symptoms Skin: Reports: No Symptoms Neurological: Reports: No Symptoms Psychiatric: Reports: No Symptoms - Patient Data Vitals - Most Recent: Last Vital Signs Temp 36.4 C 02/10/17 03:52 Pulse 90 02/10/17 03:52 Resp 18 02/10/17 03:52 BP 100/54 L 02/10/17 03:52 Pulse Ox 94 L 02/10/17 03:52 Weight - Most Recent: 83.007 kg I&O - Last 24 hours: Intake & Output 02/09/17 02/10/17 02/10/17 22:59 06:59 14:59 Intake Total 1120 340 Balance 1120 340 Lab Results - Last 24 hrs: Laboratory Results - last 24 hr 02/09/17 02/09/17 Range/Units 13:45 13:48 Cord ABG pH 7.29 (7.22-7.32) Cord ABG pCO2 42.1 (42-58) Cord ABG pO2 27 H (12-24) Cord ABG HCO3 19.6 L (24-26) Cord ABG Base Excess -6.5 L (-5.5-0.1) Cord VBG pH 7.31 (7.28-7.40) Cord VBG pCO2 43.7 H (32.8-38.6) Cord VBG pO2 18 L (28-32) Cord VBG HCO3 21.2 (19-24) Cord VBG Base Excess -4.6 L (-4.4-0.4) Med Orders - Current: Current Medications Acetaminophen (Tylenol) 650 mg PO Q4H PRN PRN Reason: mild pain or fever Benzocaine/Menthol (Dermoplast Pain Relief [place]) 0 gm TOP ASDIRECTED PRN PRN Reason: Perineal Comfort Measure Last Admin: 02/09/17 17:02 Dose: 1 can Docusate Sodium (Colace) 100 mg PO BID PRN PRN Reason: Constipation Emollient Ointment (Lansinoh Hpa) 0 gm TOP ASDIRECTED PRN PRN Reason: Sore Nipples Ibuprofen (Motrin) 600 mg PO Q6H PRN PRN Reason: Mild pain or fever Witch Marisol (Tucks) 1 pad TOP ASDIRECTED PRN PRN Reason: Hemorrhoid pain Last Admin: 02/09/17 17:02 Dose: 1 box Discontinued Medications Bupivacaine HCl (Sensorcaine-Mpf 0.25%) 10 ml .ROUTE .STK-MED ONE Stop: 02/09/17 22:23 Diphenhydramine HCl (Benadryl) 25 mg IVPUSH Q6H PRN PRN Reason: Pruritis Ephedrine Sulfate (Ephedrine Sulfate) 5 mg IVPUSH ASDIRECTED PRN PRN Reason: Hypotension Fentanyl (Sublimaze) 100 mcg EPIDUR ONETIME PRN PRN Reason: Pain Last Admin: 02/09/17 02:21 Dose: 100 mcg Fentanyl/Bupivacaine HCl (Fentanyl/Bupivacaine/Ns 2 Mcg-0.125% 100 Ml) 100 ml EPIDUR ASDIRECTED [facility] Last Admin: 02/09/17 10:30 Dose: 100 ml Lactated Ringer's (Ringers, Lactated) 1,000 mls @ 40 mls/hr IV ASDIRECTED [facility] Last Admin: 02/09/17 07:11 Dose: 125 mls/hr Oxytocin/Lactated Ringer's (Pitocin In Lr 10 Units/1,000 Ml) 10 unit in 1,000 mls @ 500 mls/hr IV .CONTINUOUS [place] Oxytocin 10 unit/ Lactated (Ringer's) 1,001 mls @ 12.01 mls/hr IV TITRATE [place]; 2 MUNITS/MIN PRN Reason: Protocol Last Titration: 02/09/17 14:30 Dose: 150 mls/hr Misoprostol (Cytotec) 25 mcg VAG Q4H PRN PRN Reason: cervical ripening Last Admin: 02/08/17 16:45 Dose: 25 mcg Misoprostol (Cytotec) Confirm Administered Dose 25 mcg .ROUTE .STK-MED ONE Stop: 02/08/17 12:30 Last Admin: 02/08/17 14:59 Dose: Not Given Misoprostol (Cytotec) Confirm Administered Dose 200 mcg .ROUTE .STK-MED ONE Stop: 02/09/17 13:41 Last Admin: 02/09/17 17:40 Dose: Not Given Misoprostol (Cytotec) 600 mcg PO ONETIME ONE Stop: 02/09/17 13:46 Last Admin: 02/09/17 01:00 Dose: 600 mcg Misoprostol (Cytotec) 600 mcg PO ONETIME ONE Stop: 02/09/17 14:36 Last Admin: 02/09/17 17:01 Dose: Not Given Nalbuphine HCl (Nubain) 10 mg IVPUSH Q2H PRN PRN Reason: Pain (moderate 4-6) Ondansetron HCl (Zofran) 4 mg IVPUSH Q4H PRN PRN Reason: Nausea/Vomiting Last Admin: 02/09/17 01:15 Dose: 4 mg Sodium Chloride (Saline Flush) 10 ml FLUSH ASDIRECTED PRN PRN Reason: Keep Vein Open - Exam General: Reports: Alert, Oriented HEENT: Reports: Pupils Equal, Pupils Reactive, EOMI, Mucous Membr. Moist/[place] Neck: Reports: Supple Lungs: Reports: Clear to Auscultation, Normal Respiratory Effort Cardiovascular: Reports: Regular Rate, Regular Rhythm GI/Abdominal Exam: Normal Bowel Sounds, Soft, Non-Tender, No Organomegaly, No Distention, No Abnormal Bruit, No Mass, Pelvis Stable (Female) Exam: Normal External Exam Back Exam: Reports: Normal Inspection, Full Range of Motion Extremities: Normal Inspection, Normal Range of Motion, Non-Tender, No Pedal Edema, Normal Capillary Refill Skin: Reports: Warm, Dry, Intact Wound/Incisions: Reports: Healing Well Neurological: Reports: No New Focal Deficit Psy/Mental Status: Reports: Alert, Normal Affect, Normal Mood *Q Meaningful Use (DIS) - VTE *Q VTE Criteria *Q: - Stroke *Q Stroke Criteria *Q: - AMI *Q AMI Criteria *Q:
== END 2017-02-10 14:09 | disposition home or self-care (01) | DRG 774 ==
LOC: JD.OB 12:07 → OBSVTOIN 02-09 13:36
PROVIDERS: ADMIT Obstetrics & Gynecology; ATTEND Obstetrics & Gynecology
PROC: 10D07Z6 Extraction of Products of Conception, Vacuum, Via Natural or Artificial Opening (ICD-10-PCS; principal; 2017-02-09)
PROC: 0KQM0ZZ Repair Perineum Muscle, Open Approach (ICD-10-PCS; 2017-02-09)
PROC: 3E0E7GC Introduction of Other Therapeutic Substance into Products of Conception, Via Natural or Artificial Opening (ICD-10-PCS; 2017-02-09)
PROC: 10907ZC Drainage of Amniotic Fluid, Therapeutic from Products of Conception, Via Natural or Artificial Opening (ICD-10-PCS; 2017-02-09)
PROC: 00HU33Z Insertion of Infusion Device into Spinal Canal, Percutaneous Approach (ICD-10-PCS; 2017-02-09)
PROC: 3E0R3BZ Introduction of Anesthetic Agent into Spinal Canal, Percutaneous Approach (ICD-10-PCS; 2017-02-09)
DX: O24.420 Gestational diabetes mellitus in childbirth, diet controlled (principal); O72.1 Other immediate postpartum hemorrhage; O48.0 Post-term pregnancy; Z37.0 Single live birth; Z3A.41 41 weeks gestation of pregnancy; O70.1 Second degree perineal laceration during delivery; O77.0 Labor and delivery complicated by meconium in amniotic fluid
CPT/HCPCS: 01967; 36415; 36600; 51702; 59300; 59409; 82803; 82962; 85027; 86850; 86900; 86901; A9270-GY; J2405; J2590; J3010; J7120